=== PATIENT | male | born 1995 | race Two or more races ===

== ENCOUNTER 2021-05-14 12:51 | Emergency (ER) | payer OTHER, SELFPAY ==
--- NOTE | ~2021-05-14 | XR_ITS ---
EXAMINATION: BILATERAL WRIST X-RAY CLINICAL INFORMATION: Pain and swelling COMPARISON: None TECHNIQUE: 4 views of each wrist FINDINGS: Right: Bone alignment is normal. No fracture or dislocation is seen. Joint spaces and soft tissues are normal. Left: Bone alignment is normal. No fracture or dislocation is seen. Joint spaces and soft tissues are normal. XR/XR wrist RT min 3V IMPRESSION: Unremarkable exam.
--- NOTE | ~2021-05-14 | XR_ITS ---
EXAMINATION: BILATERAL WRIST X-RAY CLINICAL INFORMATION: Pain and swelling COMPARISON: None TECHNIQUE: 4 views of each wrist FINDINGS: Right: Bone alignment is normal. No fracture or dislocation is seen. Joint spaces and soft tissues are normal. Left: Bone alignment is normal. No fracture or dislocation is seen. Joint spaces and soft tissues are normal. XR/XR wrist LT min 3V IMPRESSION: Unremarkable exam.
[2021-05-14 12:58] VITALS: BP 157/98; PULSE 72; RESP 16; TEMP 36.6; O2SAT 97; BMI 23.9
--- NOTE | 2021-05-14 13:39 | ED.EXTPRO ---
HPI - Extremity Problem General Chief complaint: Extremity Injury, Upper <OMERO Mckeon - Last Filed: 05/14/21 15:30> Stated complaint: both hands having difficulty gasping swelling <OMERO Mckeon Last Filed: 05/14/21 15:30> Time Seen by Provider: 05/14/21 13:39 <OMERO Mckeon - Last Filed: 05/14/21 15:30> Source: patient <OMERO Mckeon - Last Filed: 05/14/21 15:30> Mode of arrival: ambulatory <OMERO Mckeon Last Filed: 05/14/21 15:30> Limitations: no limitations <OMERO Mckeon Last Filed: 05/14/21 15:30> History of Present Illness HPI Narrative: 25-year-old male presents to the ER with bilateral wrist pain for the last couple of weeks. He works full-time at the gym but has not been able to do any lifting for the last 6 weeks due to bilateral wrist pain. He reports intermittent swelling to his wrist and pain on the volar aspect. He reports pain is worse with hyperextension. He denies any trauma or known injury. He does state several years ago he sprained both his wrist when he was doing hand stands. He has been seen at a couple different urgent care facilities and has an appointment with orthopedics next week. He noticed last night when his hands were swelling that he had a new white pinpoint blistery type rash on his finger tips and palms. The rash is not tender, itchy or burning at all. <OMERO Mckeon - Last Filed: 05/14/21 15:30> MD Complaint: joint swelling and joint paint <OMERO Mckeon Last Filed: 05/14/21 15:30> Onset (ago): week(s) (6) <OMERO Mckeon Last Filed: 05/14/21 15:30> Pain Consistency: constant <OMERO Mckeon Last Filed: 05/14/21 15:30> Location: right and upper extremity <OMERO Mckeon Last Filed: 05/14/21 15:30> Quality: aching <OMERO Mckeon Last Filed: 05/14/21 15:30> Radiation: distal <OMERO Mckeon - Last Filed: 05/14/21 15:30> Relieving factors: cold therapy and immobilization <OMERO Mckeon Last Filed: 05/14/21 15:30> Exacerbating factors: range of motion and palpation <OMERO Mckeon - Last Filed: 05/14/21 15:30> Related Data Home medications: Previous Rx's Medication Instructions Recorded prednisone 20 mg tablet 40 mg PO DAILY #14 tab 05/14/21 <OMERO Mckeon Last Filed: 05/14/21 15:30> Allergies/Adverse reactions: Allergies Allergy/AdvReac Type Severity Reaction Status Date / Time No Known Allergies Allergy Unverified 02/20/20 19:05 [No Known Allergies*] <OMERO Mckeon - Last Filed: 05/14/21 15:30> Review of Systems Review of Systems: Constitutional: No Fever, No Chills Cardiovascular: No Chest Pain, No SOB Gastrointestinal: No Nausea, No Vomiting Musculoskeletal: + joint pain, No Myalgias Skin: + Skin Lesions, No rash Neuro: + Weakness, +Numbness Psych: + Anxiety/Panic, No Depression Heme/Lymph: No Bruising, No Lymphadenopathy <OMERO Mckeon Last Filed: 05/14/21 15:30> [facility] Past Medical History Medical History: Medical History (Updated 05/14/21 @ 14:59 by OMERO Mckeon) Asthma <OMERO Mckeon - Last Filed: 05/14/21 15:30> Social History Social History: Social History Advance Directives: No Advance Directives Information Provided: No <OMERO Mckeon Last Filed: 05/14/21 15:30> Physical Exam Vital Signs: Vital Signs: Last Vital Signs Temp 98.4 F 05/14/21 14:36 Pulse 73 05/14/21 14:36 Resp 23 H 05/14/21 14:36 BP 150/90 H 05/14/21 14:36 Pulse Ox 99 05/14/21 14:36 BMI result Body Mass Index 23.9 <OMERO Mckeon Last Filed: 05/14/21 15:30> Vital Signs: Last Vital Signs Temp 98.4 F 05/14/21 14:36 Pulse 73 05/14/21 14:36 Resp 23 H 05/14/21 14:36 BP 150/90 H 05/14/21 14:36 Pulse Ox 99 05/14/21 14:36 BMI result Body Mass Index 23.9 <Johnny Fagan MD - Last Filed: 05/14/21 17:32> Appearance: Alert. Oriented X3. No acute distress. HEENT: normal inspection CVS: Normal heart rate and rhythm. Pulses normal. Respiratory: No respiratory distress. Skin: Skin warm and dry. Normal skin color. Normal skin turgor. Bilateral palms with tiny white vesicles on the tips of all of his fingers and scattered along bilateral palms. Nontender, no erythema, clear drainage on the fingertips. Extremities: Normal inspection of the bilateral wrist. There is tenderness along the volar aspect of the central wrist. Pain with hyperextension. weak hand grasp bilaterally Neuro: Oriented X 3. No motor deficit. No sensory deficit. <OMERO Mckeon - Last Filed: 05/14/21 15:30> Course Course Course Narrative: 25-year-old [id number] male presenting to the ER with nontraumatic bilateral wrist pain. He is also noted to have a tiny white papular rash on his palms finger tips. Unclear if this is related. It seems to be a chemical exposure however is not painful or burning in sensation. Dr. Fagan evaluated the patient the bedside as well, unclear etiology of the rash. Will plan to treat with a short course of steroids for his wrist pain and rash. He already has an appointment with an orthopedic doctor next week. Concern for possible carpal tunnel syndrome with intermittent swelling that is causing some numbness in his fingertips, he cannot recall the distribution of the numbing so is on clear if it is in the median nerve distribution or not. He is asking for wrist x-rays which have been ordered. <OMERO Mckeon - Last Filed: 05/14/21 15:30> Reevaluation(s) Reevaluation #1: X-rays of the bilateral wrists are normal. He was placed in bilateral wrist splints and feels better. Will give a course of prednisone and have follow-up with Orthopedics. He also has a bone his primary care doctor at the end this month. Stable for DC home. Patient agrees with plan. <OMERO Mckeon - Last Filed: 05/14/21 15:30> Discharge Plan Discharge Clinical Impression: Acute pain of both wrists <OMERO Mckeon - Last Filed: 05/14/21 15:30> Patient Disposition: Home, Self-Care <OMERO Mckeon - Last Filed: 05/14/21 15:30> Instructions: Wrist Injury (ED) <OMERO Mckeon - Last Filed: 05/14/21 15:30> Additional Instructions: Your x-rays today were normal. Recommend wearing knee provided wrist splints for support, it is most important to wear these wrist splints while sleeping. Take the prescribed anti-inflammatory steroid medication for 1 week. Follow-up with orthopedics for further evaluation. You can follow-up with the previously made appointment that you have work follow-up with orthopedic here. Name and number below. <OMERO Mckeon - Last Filed: 05/14/21 15:30> Prescriptions: New prednisone 20 mg tablet 40 mg PO DAILY Qty: 14 RF: 0 <OMERO Mckeon - Last Filed: 05/14/21 15:30> Referrals: Eduardo Hammer PA-C [[facility] [employer] [facility] [facility]] - 1 week (Bilateral wrist pain x6 weeks) <OMERO Mckeon - Last Filed: 05/14/21 15:30> Interventions: ED Discharge Assessment Last Done: 05/14/21 15:11 <OMERO Mckeon - Last Filed: 05/14/21 15:30> Discharge Date/Time: 05/14/21 15:11 <OMERO Mckeon - Last Filed: 05/14/21 15:30>
[2021-05-14 14:36] VITALS: BP 150/90; PULSE 73; RESP 23; TEMP 36.9; O2SAT 99
== END 2021-05-14 15:11 | disposition home or self-care (01) ==
PROVIDERS: Emergency Provider Emergency Medicine; PCP Internal Medicine
DX: M25.531 Pain in right wrist (principal); M25.532 Pain in left wrist
CPT/HCPCS: 73110; 99283; 99284

== ENCOUNTER 2021-06-02 08:24 | Outpatient (REF) | payer OTHER, SELFPAY ==
[2021-06-02 11:28] LABS: Hematocrit 48.7 % (42.0-52.0); Hemoglobin 16.5 g/dl (14.0-18.0); Mean Corpuscular HGB Conc 33.9 g/dl (31.0-36.0); Mean Corpuscular Hemoglobin 31.1 pg (27.0-33.0); Mean Corpuscular Volume 91.9 fL (80.0-98.0); Mean Platelet Volume 9.4 fL (9.4-12.4); Platelet Count 282 X10*3/uL (160-400); Red Cell Distribution Width 12.9 % (11.0-16.0); White Blood Count 8.6 X10*3/uL (4.8-10.8)
[2021-06-02 11:53] LABS: Alanine Aminotransferase 25 U/L (0-40); Albumin Level 4.7 g/dL (3.5-5.0); Alkaline Phosphatase 78 U/L (39-117); Anion Gap 12 (12-20); Aspartate Amino Transferase 24 U/L (5-37); Bilirubin Total 0.4 mg/dL (0.0-1.0); Blood Urea Nitrogen 21 mg/dL (9-16); Calcium 9.6 mg/dL (8.4-10.2); Carbon Dioxide 24 mmol/L (22-29); Chloride 109 mmol/L (96-108); Cholesterol 203 mg/dL; Estimated Glomerular Filt Rate > 60; Glucose Fasting 90 mg/dL (60-99); HDL Cholesterol 59 mg/dL; LDL Cholesterol Calculated 135 mg/dl; Potassium 4.2 mmol/L (3.3-5.1); Sodium 141 mmol/L (135-145); Total Protein 7.4 g/dL (6.5-8.0); Triglycerides 47 mg/dL
== END 2021-06-02 08:25 | disposition home or self-care (01) ==
LOC: HO.HMGCLDS 08:24
PROVIDERS: PCP Internal Medicine; Visit Provider Internal Medicine
DX: Z00.00 Encounter for general adult medical examination without abnormal findings (principal); G89.29 Other chronic pain; M25.539 Pain in unspecified wrist
CPT/HCPCS: 36415; 80053; 80061; 85027

== ENCOUNTER 2021-07-19 13:15 | Outpatient (REF) | payer OTHER, SELFPAY ==
[2021-07-19 16:42] LABS: Hematocrit 45.7 % (42.0-52.0); Hemoglobin 15.9 g/dl (14.0-18.0); Mean Corpuscular HGB Conc 34.8 g/dl (31.0-36.0); Mean Corpuscular Hemoglobin 31.4 pg (27.0-33.0); Mean Corpuscular Volume 90.3 fL (80.0-98.0); Mean Platelet Volume 9.2 fL (9.4-12.4); Platelet Count 288 X10*3/uL (160-400); Red Blood Count 5.06 X10*6/uL (4.60-5.80); Red Cell Distribution Width 12.2 % (11.0-16.0); White Blood Count 8.9 X10*3/uL (4.8-10.8)
[2021-07-19 16:49] LABS: C Reactive Protein 0.07 mg/dL (< or = 0.50); Rheumatoid Factor < 15.0 IU/mL (<15.0)
[2021-07-20 04:02] LABS: HIV AB/AG Nonreactive (Nonreactive); HIV Num 1 0.06 S/CO (0.00-0.99)
[2021-07-20 04:17] LABS: HBsAGNum1 0.21 S/CO (0.00-0.99); Hepatitis B Surface Antigen Negative (Negative); ~HepC Num1 0.08 S/CO (0.00-0.79); ~Hepatitis C Antibody Nonreactive (Nonreactive)
[2021-07-21 13:07] LABS: Cyclic Citrullinated Peptide <16 UNITS
[2021-07-21 13:26] LABS: Anti Nuclear Antibody Screen NEGATIVE (NEGATIVE)
== END 2021-07-19 13:16 | disposition home or self-care (01) ==
LOC: HO.HMGCLDS 13:15
PROVIDERS: Visit Provider Internal Medicine
DX: Z01.84 Encounter for antibody response examination (principal); Z11.4 Encounter for screening for human immunodeficiency virus [HIV]; G89.29 Other chronic pain; M25.539 Pain in unspecified wrist
CPT/HCPCS: 36415; 85027; 86038; 86039; 86140; 86200; 86431; 86803; 87340; 87389

== ENCOUNTER 2023-01-04 13:43 | Outpatient (AMB) | payer OTHER, SELFPAY ==
--- NOTE | 2023-01-04 14:18 | A.OFFPC_ITS ---
Vital Signs 01/04/23 14:20 Height 5 ft 10 in Weight 153 lb 4 oz BMI 22.0 BP 142/86 H Blood Pressure Location Rt brachial Position Sitting Pulse 60 Pulse Source Pulse Oximeter Pulse Oximetry (%) 98 Oxygen Delivery Method Room Air Intake Visit Reasons: Bp Follow Up Intake Note: Pt is here for a f/u appointment on his high bp. Allergies lisinopril Adverse Reaction (Verified 01/04/23 14:19) cough, fever shaky Medication List - Last Reconciled 01/04/23 by Sybil Tan MD blood pressure monitor As directed metoprolol succinate ER 50 mg PO DAILY olmesartan 5 mg PO DAILY Tobacco use date assessed: 01/04/23 Dental Screening Dental Screen Date: 01/04/23 Did you have a dental visit in the last 12 months?: Yes Did you have a dental problem in the last 6 months where you did not have access to dental care?: No Was dental information given to patient?: No HPI Bp Follow Up HPI Details Pt presents for f/u HTN. Pt reports elevated BP when checking it at home up to 140. Pt reports CP pressure lasting a few mins up to 3 x week. Patient denies radiation of the pain nausea vomiting palpitation. He exercises 5 times a week weightlifting and on the treadmill. Patient denies any exercise induced chest pain. He has been taking metoprolol daily. [facility] Medical History Annual physical exam Anxiety Asthma Wrist pain, chronic Family History Mother Mental health disorder Social History Household Members Other:: lives with sister and brother, smokes [employer], Housing: Apartment Patient Tobacco Use Status: Former Tobacco user e-Cigarette/Vaping Use: Never Used service: No Current occupational status: employed Cognitive needs: No Hearing needs: No Vision needs: No Questionnaire Thrive Questionnaire Date Thrive assessed: 07/28/21 AUDIT C Alcohol Use Questionnaire (AUDIT-C) 1. How often do you have a drink containing alcohol?: Monthly or less 2. How many drinks containing alcohol do you have on a typical day when you are drinking?: 1 or 2 3. How often do you have six or more drinks on one occasion?: Never Total Score: 1 MAGNOLIA-7 AMB Questionnaire MAGNOLIA-7 Date MAGNOLIA - 7 assessed: 07/28/21 Source: Developed by Drs. Fabrizio Mayfield, Sary Metcalf, Andrea Madison and colleagues, with an educational criss from [employer]. Review of Systems Const All systems reviewed & are unremarkable except as noted in HPI and below Reports no additional complaints Eyes Reports no additional complaints ENT Reports no additional complaints Card Reports no additional complaints Resp Reports no additional complaints GI Reports no additional complaints Reports no additional complaints Musc Reports no additional complaints Physical exam (Primary Care) Vital Signs: Last Vital Signs Pulse 60 01/04/23 14:20 BP 142/86 H 01/04/23 14:20 Pulse Ox 98 01/04/23 14:20 Oxygen Delivery Method Room Air 01/04/23 14:20 BMI result Body Mass Index 22.0 Tobacco/Smoking Status: Tobacco use Status Tobacco use date assessed 01/04/23 01/04/23 14:21 Patient Tobacco Use Status Former Tobacco user 01/04/23 14:21 e-Cigarette/Vaping Use Never Used 01/04/23 14:21 Thrive Assessment: Date of Thrive Assessment Date Thrive assessed 07/28/21 01/04/23 14:21 Const General: no acute distress HENMT Head: Yes normal to inspection Ears: hearing grossly normal bilaterally Face and sinus: Yes normal facial exam Mouth: Normal oral and palatal mucosa present Eyes General: appearance normal, both eyes and all related structures Neck Neck: Yes no lymphadenopathy and Yes supple Resp Effort & Inspection: normal respiratory effort Auscultation: clear to auscultation bilaterally Cardio Rhythm: regular rhythm Heart sounds: S1 normal heart sound present and S2 normal heart sound present GI Inspection: Yes normal to inspection Palpation (GI): Soft to palpation Assessment and Plan Assessment & Plan (1) HTN (hypertension): Code(s): I10 - Essential (primary) hypertension Plan: EKG showed normal sinus rhythm no acute ST-T changes. Olmesartan with 5 mg will be added to metoprolol patient will return for fasting blood work and urinalysis. Renal artery ultrasound will be obtained to rule out renal artery stenosis. (2) Chest pain: Code(s): R07.9 - Chest pain, unspecified Plan: Patient will be referred for stress test and will follow-up in 1 month Orders: Orders Comprehensive [place]. Panel Fast Today I10 - Essential (primary) hypertension, R07.9 - Chest pain, unspecified Aldost/Renin Today I10 - Essential (primary) hypertension, R07.9 - Chest pain, unspecified Cortisol, Free Today I10 - Essential (primary) hypertension, R07.9 - Chest pain, unspecified Lipid Panel Today I10 - Essential (primary) hypertension, R07.9 - Chest pain, unspecified TSH reflex Free T4 Today I10 - Essential (primary) hypertension, R07.9 - Chest pain, unspecified Complete Blood Count Auto Diff Today I10 - Essential (primary) hypertension, R07.9 - Chest pain, unspecified US renal doppler Today I10 - Essential (primary) hypertension, R07.9 - Chest pain, unspecified CA stress test Today I10 - Essential (primary) hypertension, R07.9 - Chest pain, unspecified Microalbumin, Random (w Creat) Today I10 - Essential (primary) hypertension, R07.9 - Chest pain, unspecified UA w Microscopic Today I10 - Essential (primary) hypertension, R07.9 - Chest pain, unspecified Medications: New olmesartan 5 mg PO DAILY 30 tabs 1RF Refilled metoprolol succinate ER 50 mg PO DAILY 90 tabs 3RF Coding Level of Care Code Est Pt Level 4 (25506) Diagnoses HTN (hypertension) I10 Chest pain R07.9
[2023-01-04 14:20] VITALS: BP 142/86; PULSE 60; O2SAT 98; BMI 22.0
== END 2023-01-04 15:14 | disposition home or self-care (01) ==
PROVIDERS: PCP Internal Medicine; Visit Provider Internal Medicine
DX: I10 Essential (primary) hypertension (principal); R07.9 Chest pain, unspecified
CPT/HCPCS: 99214

== ENCOUNTER 2023-02-15 11:05 | Outpatient (REF) | payer OTHER, SELFPAY ==
[2023-02-15 13:09] LABS: Appearance Urine Clear; Color Urine Yellow; Glucose Urine UA Negative (Negative); Leukocyte Esterase Urine Negative (Negative); Nitrite Urine Negative (Negative); PH 6.5 (5.0-9.0); Urine Blood Negative (Negative); Urine Ketones Negative (Negative); Urine Protein Negative (Neg-Trace)
[2023-02-15 13:14] LABS: Bacteria Urine None Seen (None Seen); Hyaline Casts Urine 0-2 /LPF (0-2); RBC Urine 0-2 /HPF (0-2); Squamous Epithelial Cell Urine 0-2 /HPF (0-2); WBC Urine 0-5 /HPF (0-5)
[2023-02-15 13:22] LABS: MANUAL DIFF FLAG NO
[2023-02-15 13:28] LABS: Basophils Percent Auto 0.5 % (0-2); Eosinophils Absolute Auto 0.2 X10*3/uL (0.0-0.4); Eosinophils Percent Auto 3.4 % (0-4); Hematocrit 48.4 % (42.0-52.0); Hemoglobin 16.4 g/dl (14.0-18.0); Imm Gran Abs Auto 0.02 X10*3/uL (0.00-0.03); Imm Gran Pct Auto 0.3 % (0.0-0.4); Lymphocytes Absolute Auto 2.7 X10*3/uL (1.2-4.9); Lymphocytes Percent Auto 45.8 % (20-40); Mean Corpuscular HGB Conc 33.9 g/dl (31.0-36.0); Mean Corpuscular Hemoglobin 31.4 pg (27.0-33.0); Mean Corpuscular Volume 92.7 fL (80.0-98.0); Mean Platelet Volume 9.6 fL (9.4-12.4); Monocytes Absolute Auto 0.5 X10*3/uL (0.1-1.2); Monocytes Percent Auto 7.9 % (2-11); Neutrophils Absolute Auto 2.5 x10*3/uL (2.0-8.3); Neutrophils Percent Auto 42.1 % (45-73); Platelet Count 274 X10*3/uL (160-400); Red Blood Count 5.22 X10*6/uL (4.60-5.80); Red Cell Distribution Width 12.4 % (11.0-16.0); White Blood Count 5.8 X10*3/uL (4.8-10.8)
[2023-02-15 13:49] LABS: Alanine Aminotransferase 13 U/L (0-40); Albumin Level 4.4 g/dL (3.5-5.0); Alkaline Phosphatase 57 U/L (39-117); Anion Gap 10 (12-20); Aspartate Amino Transferase 17 U/L (5-37); Bilirubin Total 0.9 mg/dL (0.0-1.0); Blood Urea Nitrogen 16 mg/dL (9-16); Calcium 9.5 mg/dL (8.4-10.2); Carbon Dioxide 28 mmol/L (22-29); Chloride 105 mmol/L (96-108); Cholesterol 175 mg/dL (<200); Estimated Glomerular Filt Rate > 60; Glucose Fasting 88 mg/dL (60-99); HDL Cholesterol 61 mg/dL (>40); LDL Cholesterol Calculated 107 mg/dL (<100); Potassium 4.7 mmol/L (3.3-5.1); Sodium 138 mmol/L (135-145); Total Protein 7.2 g/dL (6.5-8.0); Triglycerides 37 mg/dL (<150)
[2023-02-15 13:59] LABS: Creatinine Urine 58.65 mg/dL; Microalbumin Urine < 5.0 mg/L
[2023-02-23 15:29] LABS: Aldosterone/Renin Ratio 6.5 Ratio (0.9-28.9); Plasma Renin Activity 2.16 ng/mL/h (0.25-5.82)
[2023-02-24 21:49] LABS: Cortisol, Free 0.27 mcg/dL
== END 2023-02-15 11:06 | disposition home or self-care (01) ==
LOC: HO.HMGCLDS 11:05
PROVIDERS: PCP Internal Medicine; Visit Provider Internal Medicine
DX: R07.9 Chest pain, unspecified (principal); I10 Essential (primary) hypertension
CPT/HCPCS: 36415; 80053; 80061; 81001; 82088; 82530; 82570; 84443; 85025

== ENCOUNTER 2024-06-04 12:38 | Outpatient (AMB) | payer OTHER, SELFPAY ==
--- NOTE | 2024-06-04 13:08 | MHC.PC.OV ---
Vital Signs 06/04/24 13:09 Height 5 ft 10 in Weight 154 lb BMI 22.1 BP 116/70 Blood Pressure Location Rt brachial Position Sitting Pulse 100 Pulse Source Pulse Oximeter Pulse Oximetry (%) 96 Oxygen Delivery Method Room Air Intake Visit Reasons: Medication Review , HBP Intake Note: Pt is here today for PE. Allergies lisinopril Adverse Reaction (Verified 06/04/24 13:10) cough, fever shaky Medication List - Last Reconciled 06/04/24 by Sybil Tan MD blood pressure monitor As directed olmesartan 5 mg PO DAILY Tobacco use date assessed: 06/04/24 Dental Screening Dental Screen Date: 06/04/24 Did you have a dental visit in the last 12 months?: Yes Did you have a dental problem in the last 6 months where you did not have access to dental care?: No Was dental information given to patient?: Patient has dentist HPI Medication Review , HBP HPI Details Patient presents for physical. [facility] Medical History Anxiety Wrist pain, chronic Annual physical exam Asthma Surgical History No pertinent past surgical history Family History Mother Mental health disorder Social History Household Members Other:: lives with sister and brother, smokes [facility], Housing: Apartment Patient Tobacco Use Status: Never used Tobacco e-Cigarette/Vaping Use: Never Used service: No Current occupational status: employed Cognitive needs: No Hearing needs: No Vision needs: No Questionnaire PHQ-9 Over the last 2 weeks, how often have you been bothered by any of the following problems? 1. Little interest or pleasure in doing things: not at all 2. Feeling down, depressed, or hopeless: not at all 3. Trouble falling or staying asleep, or sleeping too much: not at all 4. Feeling tired or having little energy: nearly every day 5. Poor appetite or overeating: not at all 6. Feeling bad about yourself - or that you are a failure or have let yourself or your family down: not at all 7. Trouble concentrating on things, such as reading the newspaper or watching television: not at all 8. Moving or speaking so slowly that other people could have noticed. Or the opposite - being so fidgety or restless that you have been moving around a lot more than usual: not at all 9. Thoughts that you would be better off or of hurting yourself in some way: not at all Total score: 3 Depression Screening Interpretation: Negative Depression Screening Done: Yes 63632 - PHQ-9 Billing: Yes Source: Developed by Drs. Fabrizio Mayfield, Sary Metcalf, Andrea Madison and colleagues, with an educational criss from [employer]. Thrive Questionnaire Date Thrive assessed: 06/04/24 I am a: Patient What is your living situation today?: I have a steady place to live Within the past 12 months, did the food you bought not last and you didn't have the money to get more?: I choose not to answer this question Within the past 12 months, did you worry whether your food would run out before you got money to buy more?: I choose not to answer this question Do you have trouble paying for medicines?: No Do you have trouble getting transportation to medical appointments?: No Do you have trouble paying your heating and electricity bill?: I choose not to answer this question Do you have trouble taking care of your child, family member or friend?: I choose not to answer this question Do you have trouble with day-to-day activities such as bathing, preparing meals, shopping, managing finances, etc.?: I choose not to answer this question Are you currently unemployed and looking for a job?: I choose not to answer this question Are you interested in more education?: I choose not to answer this question Please select the resources that you would like help with: None Currently or been in a relationship where the following occur: I choose not to answer THRIVE Score: 0 AUDIT C Alcohol Use Questionnaire (AUDIT-C) 1. How often do you have a drink containing alcohol?: Monthly or less 2. How many drinks containing alcohol do you have on a typical day when you are drinking?: 1 or 2 3. How often do you have six or more drinks on one occasion?: Never Total Score: 1 MAGNOLIA-7 AMB Questionnaire MAGNOLIA-7 Date MAGNOLIA - 7 assessed: 06/04/24 Feeling nervous, anxious, or on edge: 0 = Not at all Not being able to stop or control worryin = Not at all Worrying too much about different things: 0 = Not at all Trouble relaxin = Several days Being so restless that it is hard to sit still: 1 = Several days Becoming easily annoyed or irritable: 0 = Not at all Feeling afraid as if something awful might happen: 1 = Several days Total MAGNOLIA-7 score (0-4 normal; 5-9 mild; 10-14 moderate; 15-21 severe): 3 Source: Developed by Drs. Fabrizio Mayfield, Sary Metcalf, Andrea Madison and colleagues, with an educational criss from [employer]. MAGNOLIA-7 Assessment Billing MAGNOLIA-7 Assessment Tool: MAGNOLIA-7 Assessment 22485 Review of Systems Const All systems reviewed & are unremarkable except as noted in HPI and below Eyes Reports no additional complaints ENT Reports no additional complaints Card Reports no additional complaints Resp Reports no additional complaints GI Reports no additional complaints Physical exam (Primary Care) Vital Signs: Last Vital Signs Pulse 100 06/04/24 13:09 BP 116/70 06/04/24 13:09 Pulse Ox 96 06/04/24 13:09 Oxygen Delivery Method Room Air 06/04/24 13:09 BMI result Body Mass Index 22.1 Tobacco/Smoking Status: Tobacco use Status Tobacco use date assessed 06/04/24 06/04/24 13:13 Patient Tobacco Use Status Never used Tobacco 06/04/24 13:13 e-Cigarette/Vaping Use Never Used 06/04/24 13:13 PHQ-9: PHQ-9 Score PHQ-9: Total score 3 06/04/24 13:13 Depression Screening Interpretation: Negative Thrive Assessment: Date of Thrive Assessment Date Thrive assessed 06/04/24 06/04/24 13:13 Currently or been in a relationship where the following occur: I choose not to answer Const General: no acute distress HENMT Head: Yes normal to inspection Ears: hearing grossly normal bilaterally Mouth: Normal oral and palatal mucosa present Eyes General: appearance normal, both eyes and all related structures Neck Neck: Yes no lymphadenopathy and Yes supple Resp Effort & Inspection: normal respiratory effort Auscultation: clear to auscultation bilaterally Cardio Rhythm: regular rhythm Heart sounds: S1 normal heart sound present and S2 normal heart sound present GI Inspection: Yes normal to inspection Palpation (GI): Soft to palpation Percussion: Yes normal to percussion Auscultation: normal bowel sounds Extrem General: Yes no clubbing, cyanosis or edema Coding Level of Care Code Est Pt Prev Care 18-39y(85383) Diagnoses HTN (hypertension) I10 Annual physical exam Z00.00 Additional Codes MAGNOLIA-7 Assessment Billing - MAGNOLIA-7 Assessment Tool: MAGNOLIA-7 Assessment 93484 ([id number]) PHQ-9 - 10894 - PHQ-9 Billing: Yes ([id number]) Assessment & Plan Assessment & Plan (1) HTN (hypertension): Code(s): I10 - Essential (primary) hypertension Category: Medical Plan: Restart olmesartan 5 mg a day, low-sodium diet regular physical activity discussed with the patient follow-up in 3 months (2) Annual physical exam: Code(s): Z00.00 - Encounter for general adult medical examination without abnormal findings Category: Medical Plan: Well-balanced diet regular physical activity discussed with the patient Medications: Refilled olmesartan 5 mg PO DAILY 90 tabs 1RF Discontinued metoprolol succinate ER Discontinued Reason: Doctor's Order 50 mg PO DAILY 90 tabs 3RF
[2024-06-04 13:09] VITALS: BP 116/70; PULSE 100; O2SAT 96; BMI 22.1
== END 2024-06-04 13:50 | disposition home or self-care (01) ==
PROVIDERS: PCP Internal Medicine; Visit Provider Internal Medicine
DX: I10 Essential (primary) hypertension (principal); Z00.00 Encounter for general adult medical examination without abnormal findings